=== PATIENT | female | born 1950 | race Caucasian/White ===

== ENCOUNTER 2016-12-21 11:39 | Inpatient (IN) | payer BC ==
[~2016-12-21] VITALS: Ht 162.6 cm; Wt 82.2 kg
[2016-12-21] MEDS ORDERED: ASPIRIN 325 MG TAB PO STA (11:51)
[2016-12-21] MEDS ORDERED: DILTIAZEM-D5W 125MG/125ML DRIP 125 ML IV STA (11:51)
[2016-12-21] MEDS ORDERED: SOD CHLORIDE 0.9% 1,000 ML IV STA (11:51)
[2016-12-21] MEDS ORDERED: DILTIAZEM 25 MG INJ IV STA (11:51)
[2016-12-21] MEDS ORDERED: ACETAMINOPHEN 500 MG TAB PO STA (12:08)
[2016-12-21 12:11] LABS: BASOPHIL # 0.1 10^3/ul (0.0-0.1); BASOPHILS % 0.4 % (0.0-2.0); EOSINOPHILS % 0.1 % (0.0-7.0); HEMATOCRIT 41.3 % (37.0-47.0); HEMOGLOBIN 13.9 g/dl (12.0-16.0); LYMPHOCYTES # 1.5 10^3/ul (0.8-2.9); LYMPHOCYTES % 11.5 % (15.0-51.0); MEAN CORPUSCULAR HEMOGLOBIN 31.9 pg (29.0-33.0); MEAN CORPUSCULAR HGB CONC 33.7 g/dl (32.0-37.0); MEAN CORPUSCULAR VOLUME 94.7 fl (82.0-101.0); MEAN PLATELET VOLUME 9.9 fl (7.4-10.4); MONOCYTES % 8.1 % (0.0-11.0); NEUTROPHIL # 10.1 10^3/ul (1.6-7.5); NEUTROPHILS % 79.4 % (39.0-77.0); PLATELET COUNT 369 10^3/UL (140-415); RED BLOOD COUNT 4.36 10^6/ul (4.20-5.40); RED CELL DISTRIBUTION WIDTH 13.2 % (11.5-14.5); WHITE BLOOD COUNT 12.7 10^3/ul (4.8-10.8)
[2016-12-21] MEDS ORDERED: IBUPROFEN 800 MG TAB PO ONE (12:30)
[2016-12-21 12:34] LABS: ALBUMIN 4.3 g/dl (3.3-4.9); ALBUMIN/GLOBULIN RATIO 1.02; BILIRUBIN,INDIRECT 0.2 mg/dl (0-1.1); BILIRUBIN,TOTAL 0.2 mg/dl (0.2-1.3); CALCIUM 9.7 mg/dl (8.4-10.2); CREATININE 0.92 mg/dl (0.44-1.00); POTASSIUM 3.4 mmol/L (3.5-5.1); TOTAL PROTEIN 8.5 g/dl (6.1-8.1)
[2016-12-21 12:37] LABS: PROTIME 13.2 Sec (12.2-14.2)
[2016-12-21 12:38] LABS: PARTIAL THROMBOPLASTIN TIME 27.5 Sec (25.0-35.0)
[2016-12-21 12:46] LABS: CK-MB 1.21 ng/ml (0.0-2.4); TROPONIN-I 0.029 ng/ml (0.00-0.12)
[2016-12-21] MEDS ORDERED: LOSA50TA6 PO (12:59)
[2016-12-21] MEDS ORDERED: LEVO50TA74 PO (12:59)
--- NOTE | 2016-12-21 12:59 | RADRPT ---
PROCEDURE: XR Chest. CLINICAL INDICATION: Chest pain TECHNIQUE: Single AP portable chest. COMPARISON: No prior Chest x-ray FINDINGS: The cardiomediastinal silhouette is within normal limits of size. Right base air space opacity sugge stive of the small right pleural effusion and/or atelectasis. The lungs are otherwise clear. No pneu mothorax. The osseous structures and soft tissues are unremarkable. IMPRESSION: 1. Blunting of the right costophrenic angle most compatible with small right pleural effusion versus atelectasis or airspace disease. 2. No other acute intrathoracic abnormality. RPTAT: HH Physician Zeina Date Time Electronically viewed and signed by Physician Zeina on 12/21/2016 12:58 BISI/
[2016-12-21] MEDS ORDERED: METOPROLOL 5 MG INJ IV ONE (13:00)
[2016-12-21] MEDS ORDERED: LEVO100T87 PO (13:00)
[2016-12-21] MEDS ORDERED: METF500T4 PO (13:01)
[2016-12-21] MEDS ORDERED: SIMV10TA PO (13:06)
[2016-12-21] MEDS ORDERED: ONDANSETRON 4 MG INJ IV PRN ×2 (14:00→15:30)
[2016-12-21] MEDS ORDERED: ACETAMINOPHEN 325 MG TAB PO PRN ×2 (14:00→15:30)
[2016-12-21 14:04] LABS: ADD UMIC YES; UR ASCORBIC ACID NEGATIVE (NEGATIVE); UR BACTERIA FEW /HPF (NONE SEEN); UR BILIRUBIN (Dip) NEGATIVE (NEGATIVE); UR BLOOD (Dip) 1+ mg/dL (NEGATIVE); UR CLARITY CLEAR (CLEAR); UR COLOR STRAW (YELLOW); UR GLUCOSE (Dip) NEGATIVE (NEGATIVE); UR KETONES (Dip) NEGATIVE (NEGATIVE); UR LEUKOCYTE ESTERASE (Dip) NEGATIVE Leu/ul (NEGATIVE); UR NITRITE (Dip) NEGATIVE (NEGATIVE); UR RBC 1 /HPF (0-5); UR SPECIFIC GRAVITY (Dip) 1.004 (1.003-1.030); UR TOTAL PROTEIN (Dip) NEGATIVE (NEGATIVE); UR UROBILINOGEN (Dip) NEGATIVE (NEGATIVE)
[2016-12-21 14:10] LABS: CHOL/HDL RATIO 3.3 RATIO
[2016-12-21 14:28] LABS: T3 UPTAKE 40.8 % (23.5-40.5)
[2016-12-21] MEDS ORDERED: POTASSIUM CHLORIDE (SR) 20 MEQ TAB PO STA (14:37)
[2016-12-21] MEDS ORDERED: FUROSEMIDE 40 MG INJ IV ONE (15:00)
--- NOTE | 2016-12-21 15:09 | HP ---
Date/Time of Note Date/Time of Note DATE: 12/21/16 TIME: 15:01 Assessment/Plan VTE Prophylaxis VTE Prophylaxis Intervention: LMWH Lines/Catheters IV [facility] Saline Lock Assessment/Plan Chief Complaint/Hosp Course 1. Chest pain likely secondary to pneumonia and/or a flutter-now improved status diltiazem and return to sinus rhythm IV antibiotics 2D echo Rule out ACS with troponins Phenergan with codeine as needed for cough Chest x-ray shows small right pleural effusion versus atelectasis or airspace disease, Lasix IV 1 2. Sepsis secondary pneumonia IV antibiotics 3. A flutter with rapid heart rate-resolved status post diltiazem Telemetry monitoring 4. Hypertension continue meds 5. Hypothyroidism continue home meds Check thyroid panel Prophylaxis: Lovenox Problems: HPI/ROS Admit Date/Time Admit Date/Time December 21, 2016 Hx of Present Illness Patient is a 66-year-old female with a history of prediabetes, hypertension, hypothyroidism as well as obstructive sleep apnea on CPAP at home. Patient presents with worsening cough chest discomfort for the past several days, pain in the chest was initially only when she coughed but became persistent today and hence presents to the ED. In the ER patient was found to be a flutter with rapid heart rate the patient was given 20 mg of diltiazem and is currently in sinus with a normal rate. Patient was noted to be febrile in the ED, patient has no other complaints at this time, she denies any cardiac history. ROS Constitutional: improved, no complaints Eyes: no complaints ENT: no complaints Respiratory: cough Cardiovascular: chest pain Gastrointestinal: no complaints Genitourinary: no complaints Musculoskeletal: no complaints Skin: no complaints Neurologic: no complaints Endocrine: no complaints Lymphatic: no complaints Psychological: nl mood/affect, no complaints Immunologic: no complaints PMH/Family/Social Past Medical History Hypertension, prediabetes, hypothyroidism, obstructive sleep apnea Past Surgical History Past Surgical Hx: no surgical history Family History Significant Family History: other (Mother with enlarged heart) Social History Alcohol Use: none Smoking Status: Never smoker Drug Use: none Exam/Review of Systems Vital Signs Vitals Vital Signs Date Time Temp Pulse Resp B/P Pulse Ox O2 Delivery O2 Flow Rate FiO2 12/21/16 13:39 96 16 95/69 99 Nasal Cannula 2.0 12/21/16 11:42 100.1 Exam Constitutional: alert, oriented Respiratory: clear to auscultation Cardiovascular: regular rate and rhythm Gastrointestinal: soft, No distended Musculoskeletal: nl extremities to inspection Labs Result Diagram: 12/21/16 1159 12/21/16 1159 Medications Medications Current Medications Furosemide (Lasix) 40 mg ONCE ONCE IV ; Start 12/21/16 at 15:00; Stop 12/21/16 at 15:01 SANTI BOONE Dec 21, 2016 15:09
[2016-12-21 15:15] VITALS: BP 122/75; PULSE 80; RESP 18
[2016-12-21 15:28] VITALS: Ht 162.6 cm; Wt 82.2 kg
[2016-12-21] MEDS ORDERED: ALBUTEROL/IPRATROPIUM (NEB) 3 ML AMP HHN PRN (15:30)
[2016-12-21] MEDS ORDERED: ZOLPIDEM 5 MG TAB PO PRN (15:30)
[2016-12-21] MEDS ORDERED: DOCUSATE SODIUM 100 MG CAP PO PRN (15:30)
[2016-12-21] MEDS ORDERED: morphine 2 MG INJ IV PRN (15:30)
[2016-12-21] MEDS ORDERED: NACL 0.9% 3 ML SYG IV SCH (15:30)
[2016-12-21] MEDS ORDERED: HYDROCODONE/APAP (5/325) TAB PO PRN (15:30)
[2016-12-21] MEDS ORDERED: NITROGLYCERIN (SL) 0.4 MG TAB SL PRN (15:30)
[2016-12-21] MEDS ORDERED: DEXTROSE 50% 50 ML SYRINGE IV PRN ×2 (16:00)
[2016-12-21] MEDS ORDERED: GLUCOSE GEL 15 GRAM TUBE BUCCAL PRN (16:00)
[2016-12-21] MEDS ORDERED: GLUCOSE GEL 15 GRAM TUBE PO PRN ×2 (16:00)
[2016-12-21] MEDS ORDERED: GLUCAGON 1 MG INJ IM PRN (16:00)
[2016-12-21 16:02] VITALS: BP 122/75; RESP 18
[2016-12-21 16:15] VITALS: PULSE 80
[2016-12-21] MEDS: LOSARTAN 50 MG TAB PO SCH (16:36)
[2016-12-21] MEDS ORDERED: CEFTRIAXONE 1 GM/50 ML (PMX) 50 ML IVPB SCH (17:30)
[2016-12-21] MEDS ORDERED: AZITHROMYCIN 500MG/NS (PMX) 250 ML IVPB SCH (17:30)
[2016-12-21] MEDS: INSULIN ASPART [NOVOLOG] 3 ML PEN SC SCH ×2 (17:50→21:00)
[2016-12-21] MEDS ORDERED: INFLUENZA VIRUS VACCINE 0.5 ML SYG IM* ONE (18:00)
[2016-12-21 19:55] VITALS: BP 111/70; RESP 19
[2016-12-21 20:11] VITALS: PULSE 83
[2016-12-21] MEDS ORDERED: ATORVASTATIN 10 MG TAB PO SCH (21:00)
[2016-12-22] VITALS (7 sets, daily range): BP systolic 121–160; BP diastolic 66–91; PULSE 70–94; RESP 18–19
[2016-12-22] MEDS ORDERED: ACCU-CHEK XX SCH (02:00)
[2016-12-22] MEDS ORDERED: LEVOTHYROXINE 100 MCG TAB PO SCH (07:00)
[2016-12-22] MEDS: INSULIN ASPART [NOVOLOG] 3 ML PEN SC SCH ×2 (08:00→12:00)
[2016-12-22 08:34] LABS: BASOPHILS % 0.5 % (0.0-2.0); EOSINOPHILS % 0.3 % (0.0-7.0); HEMATOCRIT 39.4 % (37.0-47.0); LYMPHOCYTES # 1.4 10^3/ul (0.8-2.9); LYMPHOCYTES % 18.6 % (15.0-51.0); MEAN CORPUSCULAR HEMOGLOBIN 31.1 pg (29.0-33.0); MEAN CORPUSCULAR VOLUME 94.3 fl (82.0-101.0); MEAN PLATELET VOLUME 9.9 fl (7.4-10.4); MONOCYTE # 0.7 10^3/ul (0.3-0.9); MONOCYTES % 9.1 % (0.0-11.0); NEUTROPHIL # 5.3 10^3/ul (1.6-7.5); PLATELET COUNT 333 10^3/UL (140-415); RED BLOOD COUNT 4.18 10^6/ul (4.20-5.40); RED CELL DISTRIBUTION WIDTH 13.2 % (11.5-14.5); WHITE BLOOD COUNT 7.5 10^3/ul (4.8-10.8)
[2016-12-22] MEDS: LOSARTAN 50 MG TAB PO SCH (08:43)
[2016-12-22] MEDS ORDERED: ENOXAPARIN 40 MG/0.4 ML SYG SC SCH (09:00)
[2016-12-22] MEDS ORDERED: ASPIRIN (EC) 325 MG TAB PO SCH (09:00)
[2016-12-22 09:02] LABS: CALCIUM 9.6 mg/dl (8.4-10.2); CREATININE 0.78 mg/dl (0.44-1.00); MAGNESIUM 1.9 mg/dl (1.7-2.5); PHOSPHORUS 3.9 mg/dl (2.5-4.9); POTASSIUM 3.8 mmol/L (3.5-5.1)
[2016-12-22 09:12] LABS: T3 UPTAKE 40.6 % (23.5-40.5)
--- NOTE | 2016-12-22 13:57 | RADRPT ---
Echocardiogram Report Patient Name: CHI HALL Gender: Female Date: 1950 Study Date: 22-Dec-2016 Nurse Substance Abuse: Dayana Vidal [facility] Location: 5538 Ref. Physician: SANTI BOONE Quality: Good Procedures: Transthoracic echocardiogram with complete 2D, M-Mode, and doppler examination. Indications: Congestive Heart Failure. 2D/M Mode Doppler Measurement Value Normal Ranges Measurement Value Normal Ranges LVIDd 2D 3.9 3.5 - 5.6 cm AV Peak Alek 1.5 m/sec LVIDs 2D 2.3 2.1 - 4.1 cm AV Peak PG 8.7 mmHg LVPWd 2D 0.9 0.6 - 1.1 cm LVOT Peak Alek 1.1 m/sec IVSd 2D 1.0 0.6 - 1.1 cm LVOT Peak PG 4.6 mmHg AoR Diam 2D 2.8 2.0 - 3.7 cm MV E Peak Alek 0.6 m/sec EDV 2D 65.1 cm3 MV A Peak Alek 0.9 m/sec ESV 2D 12.9 cm3 MV E/A 0.7 LA Dimen 2D 3.4 2.3 - 4.0 cm MV Decel Time 198 msec MV Decel Dixie 3 MV E/A 0.7 TR Peak Alek 2.6 m/sec TR Peak PG 26.0 mmHg RVSP 29.0 mmHg Findings Left Ventricle: Normal left ventricular systolic function. Normal left ventricular cavity size. Normal left ventricular wall thickness. Ejection fraction is visually estimated at 65 %. Tissue Doppler/Mitral Doppler indices are consistent with impaired relaxation (Stage I diastolic dysfunction). Right Ventricle: Normal right ventricular size. Normal right ventricular systolic function. Left Atrium: The left atrium is normal in size. Right Atrium: The right atrium is normal in size. Mitral Valve: Mitral valve leaflets appear mildly thickened. Mild mitral annular calcification. Trace mitral regurgitation. Aortic Valve: Normal appearance of the aortic valve. No significant aortic stenosis or insufficiency. Tricuspid Valve: Normal appearance of the tricuspid valve. Estimated peak PA systolic pressure 29 mmHg. There is trace tricuspid regurgitation. Pulmonic Valve: Pulmonic valve not well visualized. Pericardium: Trivial pericardial effusion. Aorta: Normal aortic root. IVC: Normal size and normal respiratory collapse consistent with normal right atrial pressure. Conclusions 1.Normal left ventricular systolic function. Normal left ventricular cavity size. Normal left ventricular wall thickness. Ejection fraction is visually estimated at 65 %. Tissue Doppler/Mitral Doppler indices are consistent with impaired relaxation (Stage I diastolic dysfunction). 2.Normal right ventricular size. Normal right ventricular systolic function. 3.The left atrium is normal in size. 4.The right atrium is normal in size. 5.Mitral valve leaflets appear mildly thickened. Mild mitral annular calcification. Trace mitral regurgitation. 6.Normal appearance of the aortic valve. No significant aortic stenosis or insufficiency. 7.Normal appearance of the tricuspid valve. Estimated peak PA systolic pressure 29 mmHg. There is trace tricuspid regurgitation. 8.Trivial pericardial effusion. 9.Normal aortic root. 10.Normal size and normal respiratory collapse consistent with normal right atrial pressure. Electronically Signed By: Rajeev Lindsay 22-Dec-2016 13:57:04 -0700 Patient Name: CHI HALL Study Date: 22-Dec-2016 [id number]
--- NOTE | 2016-12-22 17:26 | PDOCDIS ---
Discharge Instructions CONDITION Patient Condition: Good HOME CARE INSTRUCTIONS: Diet Instructions: Regular ACTIVITY: Activity Restrictions: No Restrictions FOLLOW UP/APPOINTMENTS Follow-up Plan F/U WITH YOUR PCP IN 1-2 WEEKS SANTI BOONE Dec 22, 2016 17:26
[2016-12-22] MEDS ORDERED: LEVO500T10 PO (18:01)
--- NOTE | 2016-12-22 19:00 | DS ---
Date/Time of Note Date/Time of Note DATE: 12/22/16 TIME: 18:55 Discharge Summary Admission/Discharge Info Admit Date/Time Dec 21, 2016 at 13:55 Discharge Date/Time Dec 22, 2016 at 18:29 Discharge Diagnosis 1. Chest pain secondary to pneumonia and/or a flutter-now improved status diltiazem and return to sinus rhythm Status post IV antibiotics 2D echo shows preserved EF Ruled out ACS with active troponins Chest x-ray showed small right pleural effusion versus atelectasis or airspace disease, Lasix IV 1 2. Sepsis secondary pneumonia-resolved with IV antibiotic 3. A flutter with rapid heart rate-resolved status post diltiazem Telemetry monitoring overnight shows sinus rhythm 4. Hypertension continue home meds 5. Hypothyroidism continue home meds TSH is within normal limits Patient Condition: Good Hospital Course Patient is a 66-year-old female with a history of prediabetes, hypertension, hypothyroidism as well as obstructive sleep apnea on CPAP at home. Patient presents with worsening cough and chest discomfort which is felt to be secondary to bronchitis/pneumonia. ACS was ruled out and sepsis resolved with IV antibiotics. Patient condition improved and was able to ambulate at room air , her chest pain did improve but patient did still report having a cough. Patient was found to be stable for DC with p.o. antibiotic and on day of discharge patient's vitals, labs and physical exam are stable. Home Meds Active Scripts Levofloxacin* (Levofloxacin*) 500 Mg Tablet, 500 MG PO DAILY for 4 Days, #4 TAB Prov:SANTI BOONE 12/22/16 Reported Medications Simvastatin* (Zocor*) 10 Mg Tablet, 10 MG PO QHS, #30 TAB 12/21/16 Metformin* (Glucophage*) 500 Mg Tab, 500 MG PO BID, #60 TAB 12/21/16 Levothyroxine Sodium* (Levothyroxine Sodium*) 100 Mcg Tablet, 100 MCG PO BEFORE BREAKFAST, #30 TAB 12/21/16 Losartan Potassium* (Losartan Potassium*) 50 Mg Tablet, 50 MG PO DAILY, TAB 12/21/16 Discontinued Reported Medications Levothyroxine Sodium* (Levothyroxine Sodium*) 50 Mcg Tablet, 50 MCG PO BEFORE BREAKFAST, #30 TAB 12/21/16 Follow-up Plan F/U WITH YOUR PCP IN 1-2 WEEKS Primary Care Provider Raymond Lea Time spent on discharge: > 30 minutes SANTI BOONE Dec 22, 2016 19:00
== END 2016-12-22 18:29 | disposition home or self-care (01) | DRG 871 ==
LOC: E/R 11:39 → MS4 13:55
PROVIDERS: ADMIT Internal Medicine; ATTEND Internal Medicine
DX: A41.9 Sepsis, unspecified organism (principal); J18.9 Pneumonia, unspecified organism; I48.92 Unspecified atrial flutter; I10 Essential (primary) hypertension; E03.9 Hypothyroidism, unspecified; G47.33 Obstructive sleep apnea (adult) (pediatric); R73.03 Prediabetes; Z79.4 Long term (current) use of insulin
CPT/HCPCS: 71010; 80048; 80053; 80061; 81001; 82550; 82553; 82962; 83036; 83690; 83735; 83880; 84100; 84436; 84443; 84479; 84484; 85025; 85610; 85730; 87040; 87086; 90686; 93005; 93306; J0456; J0696; J1650; J1815; J1940; J7030

== ENCOUNTER 2017-02-08 17:11 | Emergency (ER) | payer BC ==
[~2017-02-08] VITALS: Ht 162.6 cm; Wt 77.6 kg
[~2017-02-08 17:11] MED LIST: LEVO100T87 PO; LEVO500T10 PO; LOSA50TA6 PO; METF500T4 PO; SIMV10TA PO
[2017-02-08 17:14] VITALS: Ht 162.6 cm; Wt 77.6 kg
[2017-02-08 20:27] VITALS: TEMP 98.7
--- NOTE | 2017-02-08 21:27 | ERD ---
ER Documentation Chief Complaint Chief Complaint BIB SELF C/O SOB WITH BACK UPPER PAIN X 1 WEEK DENIES CHEST PAIN HPI This is a 66-year-old female with a past medical history of hypertension, hyperlipidemia, diabetes, asthma, hypothyroidism who is presenting with 3-4 days of subjective fever, chills, generalized muscle aches and pains including in her shoulders, significant congestion, a productive cough of clear yellow phlegm, and chest discomfort and tightness only when coughing. The patient has had no headache or vision changes. The patient does not endorse neck or midline back pain. The patient denies lightheadedness or dizziness. The patient denies nausea or vomiting. The patient denies abdominal pain or changes to bowel movements or urination. The patient has had no focal deficits. The patient has had no weakness or numbness or tingling to the face or extremities. ROS All systems reviewed and are negative except as per history of present illness. Medications Home Meds Active Scripts Albuterol Sulfate* (Ventolin HFA*) 18 Gm Hfa.aer.ad, 2 PUFF INHALATION Q4H, #1 INHALER Prov:GISELL BAI MD 02/08/17 Levofloxacin* (Levofloxacin*) 500 Mg Tablet, 500 MG PO DAILY for 4 Days, #4 TAB Prov:SANTI BOONE 12/22/16 Reported Medications Simvastatin* (Zocor*) 10 Mg Tablet, 10 MG PO QHS, #30 TAB 12/21/16 Metformin* (Glucophage*) 500 Mg Tab, 500 MG PO BID, #60 TAB 12/21/16 Levothyroxine Sodium* (Levothyroxine Sodium*) 100 Mcg Tablet, 100 MCG PO BEFORE BREAKFAST, #30 TAB 12/21/16 Losartan Potassium* (Losartan Potassium*) 50 Mg Tablet, 50 MG PO DAILY, TAB 12/21/16 Allergies Allergies: Coded Allergies: lisinopril (Verified Allergy, Severe, 12/21/16) PMhx/Soc History of Surgery: No Anesthesia Reaction: No Hx Neurological Disorder: No Hx Respiratory Disorders: Yes (ASTHMA) Hx Cardiac Disorders: Yes (HTN, HLD, DM) Hx Psychiatric Problems: No Hx Miscellaneous Medical Probl: Yes (Hypothyroidism) Hx Alcohol Use: No Hx Substance Use: No Hx Tobacco Use: No Smoking Status: Never smoker FmHx Family History: diabetes Physical Exam Vitals Vital Signs Date Time Temp Pulse Resp B/P Pulse Ox O2 Delivery O2 Flow Rate FiO2 02/09/17 00:22 106 18 120/75 97 Room Air 02/08/17 23:41 79 18 97 21 02/08/17 20:27 98.7 86 20 128/83 98 Room Air 02/08/17 17:14 99.4 107 18 128/85 99 Physical Exam Const: No apparent distress, well-developed, well-nourished Head: Normocephalic, Atraumatic Eyes: Normal Conjunctiva. Extraocular movements intact. Pupils equal, round and reactive to light ENT: Normal External Ears, Nose and Mouth. Neck: Full range of motion. No meningismus. Resp: Clear to auscultation bilaterally, No wheezes, rales or rhonchi Cardio: Regular rate and rhythm. No murmurs, rubs or gallops Abd: Soft, non tender, non distended. Normal bowel sounds Skin: No petechiae or rashes Back: No midline tenderness. No CVA tenderness Ext: No cyanosis, or edema Neur: Awake and alert, oriented 4. Cranial nerves intact. No facial droop. Normal strength, sensation and coordination. Psych: Normal Mood and Affect Result Diagram: 02/08/17212802/08/172128 Results 24 hrs Laboratory Tests Test 02/08/17 21:29 White Blood Count 8.110^3/ul Red Blood Count 4.4510^6/ul Hemoglobin 13.9g/dl Hematocrit 40.7% Mean Corpuscular Volume 91.5fl Mean Corpuscular Hemoglobin 31.2pg Mean Corpuscular Hemoglobin Concent 34.2g/dl Red Cell Distribution Width 12.3% Platelet Count 88416^3/UL Mean Platelet Volume 11.1fl Neutrophils % 63.2% Lymphocytes % 25.2% Monocytes % 11.0% Eosinophils % 0.1% Basophils % 0.1% Nucleated Red Blood Cells % 0.0/100WBC Neutrophils # 5.110^3/ul Lymphocytes # 2.010^3/ul Monocytes # 0.910^3/ul Eosinophils # 0.010^3/ul Basophils # 0.010^3/ul Nucleated Red Blood Cells # 0.010^3/ul Sodium Level 139mmol/L Potassium Level 3.5mmol/L Chloride Level 101mmol/L Carbon Dioxide Level 21mmol/L Anion Gap 21 Blood Urea Nitrogen 28mg/dl Creatinine 1.28mg/dl Glucose Level 107mg/dl Calcium Level 10.0mg/dl Troponin I 0.015ng/ml Current Medications Medications (Trade) Dose Ordered Sig/Gato Route PRN Reason Start Time Stop Time Status Last Admin Dose Admin Albuterol (Proventil 0.083% (Neb)) 5 mg ONCE STAT INH 02/08/17 23:28 02/08/17 23:30 DC 02/08/17 23:41 Ipratropium Maynard (Atrovent 0.02% (Neb)) 0.5 mg ONCE STAT INH 02/08/17 23:28 02/08/17 23:30 DC 02/08/17 23:40 Acetaminophen (Tylenol Tab) 650 mg ONCE ONCE PO 02/09/17 00:00 02/09/17 00:01 DC 02/09/17 00:22 Procedures/MDM MDM The patient's presentation warrants further investigation. The patient has symptoms consistent with an upper respiratory tract infection. We will evaluate for other possible infectious etiologies. The patient does endorse chest discomfort with coughing, but she is not have symptoms consistent with a cardiac etiology. An EKG and troponin will be obtained, and this will be evaluated further once the results are back. The patient's symptoms are not consistent with aortic dissection. She is oxygenating well, I do not suspect pneumothorax. She is not tachypneic or hypoxic. She did have an episode of tachycardia when she first arrived, but this was while she was being set up in her room. As things calm down, her heart rate returned to normal in the 80s, which is reassuring. She has not had any recent prolonged travel. She is not on any hormonal medications. I have low suspicion for pulmonary embolism. She does not have any GI symptoms to suggest esophageal pathology such as a [place]- [place] tear Mcdonald's esophagus. In addition to blood work, a chest x-ray will be obtained to evaluate for widened mediastinum, pneumomediastinum, pneumothorax , pneumonia. The patient is actually quite well-appearing, and I have decreased suspicion for an emergent etiology of her symptoms. LABS The patient's blood work was obtained and reviewed. The patient's CBC shows no leukocytosis and no left shift. The patient is afebrile and does not appear systemically ill. I do not suspect a systemic infection. The patient is not anemic today. The patient's platelet count is unremarkable. The patient's BMP shows no signs of metabolic or electrolyte emergencies. The patient's creatinine was mildly elevated in addition to her BUN. There may be a component of dehydration. The patient was encouraged to maintain adequate oral fluid intake. The patient's troponin was unremarkable at 0.015. The slight elevation from negative may be attributed to her acute kidney injury. The patient's EKG is normal, and I have low suspicion for a cardiac etiology. EKG EKG read by me: Rate/Rhythm: Regular rate and rhythm at a rate of 82 Intervals: Normal [place]: Normal Impression: No evidence of ischemia or arrhythmia IMAGING CXR FINDINGS: The heart is normal in size. The lungs are clear with no focal consolidations, pleural effusions, or pneumothorax. Degenerative changes of the spine and shoulder joints are present. IMPRESSION: No acute cardiopulmonary disease. Electronically viewed and signed by Physician Michael on 02/08/2017 22:16 In addition to her viral illness, the patient's shoulder pains are likely chronic and attributed to these degenerative changes. TREATMENT/DISPOSITION The patient did have a fever in the emergency department. She was given Tylenol which did improve her discomfort. While she did not have any wheezing, she does have a history of asthma. Given the congestion that she has been dealing with, I felt that a treatment of albuterol and ipratropium might benefit her. These were provided, the patient did feel that she had improved aeration. She will be sent home with a prescription for albuterol that she may use as needed for cough, wheezing or shortness of breath. It is also possible that the patient has a cough variant asthma versus COPD. This may be worked up further as an outpatient. The patient's presentation is reassuring. I do still suspect a URI as the cause of her symptoms. At this time, I feel that the patient stable for discharge. The patient will need follow-up with his primary care physician in 2 -3 days. The patient will be given strict precautions with which to return to the emergency department. The patient's blood pressure was elevated at greater than 120/80 while in the emergency department. The patient was otherwise stable with no evidence of hypertensive urgency or emergency. The patient will require reevaluation of his blood pressure in 2-3 days, but this may be completed by a primary care physician as an outpatient. He does not require admission for blood pressure control. Departure Diagnosis: Primary Impression: Shortness of breath Additional Impressions: URI (upper respiratory infection) URI type: unspecified viral URI Qualified Code: J06.9 - Viral upper respiratory tract infection Dehydration DOM (acute kidney injury) Condition: Stable GISELL BAI MD Feb 08, 2017 21:27
[2017-02-08 21:50] LABS: BASOPHILS % 0.1 % (0.0-2.0); EOSINOPHILS % 0.1 % (0.0-7.0); HEMATOCRIT 40.7 % (37.0-47.0); HEMOGLOBIN 13.9 g/dl (12.0-16.0); LYMPHOCYTES % 25.2 % (15.0-51.0); MEAN CORPUSCULAR HEMOGLOBIN 31.2 pg (29.0-33.0); MEAN CORPUSCULAR HGB CONC 34.2 g/dl (32.0-37.0); MEAN CORPUSCULAR VOLUME 91.5 fl (82.0-101.0); MEAN PLATELET VOLUME 11.1 fl (7.4-10.4); MONOCYTE # 0.9 10^3/ul (0.3-0.9); NEUTROPHIL # 5.1 10^3/ul (1.6-7.5); NEUTROPHILS % 63.2 % (39.0-77.0); PLATELET COUNT 219 10^3/UL (140-415); RED BLOOD COUNT 4.45 10^6/ul (4.20-5.40); RED CELL DISTRIBUTION WIDTH 12.3 % (11.5-14.5); WHITE BLOOD COUNT 8.1 10^3/ul (4.8-10.8)
[2017-02-08 22:10] LABS: CREATININE 1.28 mg/dl (0.44-1.00); POTASSIUM 3.5 mmol/L (3.5-5.1)
--- NOTE | 2017-02-08 22:16 | RADRPT ---
PROCEDURE: XR Chest. CLINICAL INDICATION: Chest Pain. TECHNIQUE: Single frontal view of the chest was obtained COMPARISON: None FINDINGS: The heart is normal in size. The lungs are clear with no focal consolidations, pleural effusions, or pneumothorax. Degenerative changes of the spine and shoulder joints are present. IMPRESSION: 1. No acute cardiopulmonary disease. RPTAT:AAJJ Physician Michael Date Time Electronically viewed and signed by Iain Alva Physician on 02/08/2017 22:16 QL/
[2017-02-08 22:22] LABS: TROPONIN-I 0.015 ng/ml (0.00-0.12)
[2017-02-08] MEDS ORDERED: IPRATROPIUM (NEB) 0.5 MG/2.5 ML AMP INH STA (23:28)
[2017-02-08] MEDS ORDERED: ALBUTEROL 0.083% (NEB) 2.5 MG/3 ML AMP INH STA (23:28)
[2017-02-08] MEDS ORDERED: ALBU18HF INHALATION (23:51)
[2017-02-09] MEDS ORDERED: ACETAMINOPHEN 325 MG TAB PO ONE
[2017-02-09 00:22] VITALS: BP 120/75; PULSE 106; RESP 18
== END 2017-02-09 00:31 | disposition home or self-care (01) ==
LOC: E/R 17:11
DX: J06.9 Acute upper respiratory infection, unspecified (principal); E86.0 Dehydration; N17.9 Acute kidney failure, unspecified; J45.909 Unspecified asthma, uncomplicated; I10 Essential (primary) hypertension; E03.9 Hypothyroidism, unspecified; E11.9 Type 2 diabetes mellitus without complications; Z79.84 Long term (current) use of oral hypoglycemic drugs
CPT/HCPCS: 36415; 71010; 80048; 84484; 85025; 94664

== ENCOUNTER 2017-04-21 11:29 | Emergency (ER) | END 2017-04-21 17:24 | disposition home or self-care (01) ==